=== PATIENT | female | born 1985 | race Caucasian/White ===

== ENCOUNTER 2016-09-26 19:53 | Emergency (ER) | payer OTHER ==
[2016-09-26 19:59] VITALS: RESP 16; TEMP 98.2
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
[2016-09-26] MEDS ORDERED: ACETAMINOPHEN TAB 500 MG TAB PO STA (21:26)
[2016-09-26 21:34] VITALS: BP 126/66; PULSE 82
== END 2016-09-26 21:34 | disposition home or self-care (01) ==
LOC: EC 19:53
DX: S06.0X0A Concussion without loss of consciousness, initial encounter (principal); V43.62XA Car passenger injured in collision with other type car in traffic accident, initial encounter; Y92.410 Unspecified street and highway as the place of occurrence of the external cause; Z87.891 Personal history of nicotine dependence
CPT/HCPCS: 70450; 72125; 99284

== ENCOUNTER → 2018-12-11 | Outpatient (CLI) | payer OTHER ==
--- NOTE | 2018-12-11 10:58 | MM ---
Reason for exam: screening (asymptomatic). Baseline mammogram. History: Patient is nulliparous. Family history of breast cancer in maternal grandmother at age 70. Taking hormonal contraceptives beginning at age 17. Physical Findings: Nurse did not find any significant physical abnormalities on exam. MG 3D Screening Mammo W/Cad Bilateral CC, MLO, and XCCL view(s) were taken. There are scattered fibroglandular densities. Small 5mm nodule on each side. 3D images suggest that these are circumscribed. Cysts are suspected. 6 month follow up recommended. These results were verbally communicated with the patient and result sheet given to the patient on 12/11/18. ASSESSMENT: Probably benign, BI-RAD 3 RECOMMENDATION: Follow-up diagnostic mammogram of both breasts in 6 months.
== END | disposition home or self-care (01) ==
LOC: RADMAMWWP 09:35
PROVIDERS: ATTEND Family Medicine
DX: Z12.31 Encounter for screening mammogram for malignant neoplasm of breast (principal); Z80.3 Family history of malignant neoplasm of breast
CPT/HCPCS: 77063; 77067

== ENCOUNTER → 2019-02-08 | Outpatient (CLI) | payer OTHER ==
--- NOTE | 2019-02-08 08:47 | MR ---
EXAMINATION TYPE: MR brain wo con DATE OF EXAM: 02/08/2019 7:51 AM COMPARISON: CT brain 09/26/2016 HISTORY: Headache Multiplanar and multispin-echo imaging of the brain was performed . The ventricles, basal cisterns and sulci overlying the cerebral convexities are within normal limits. There is no evidence for midline shift or mass effect. Acute intracranial hemorrhage or extra-axial collection is not evident. The brain parenchyma reveals some scattered hyperintensities and inversion recovery T2-weighted seque nces within the frontal and right parietal white matter, approximately 5-10 lesions are present No acute edema is identified. The paranasal sinuses show minimal mucosal thickening in the maxillary sinus on the left, and mastoid air cells are well-aerated. There is no restricted diffusion. There are normal vascular flow voids. Orbits show symmetric appearance. IMPRESSION: Nonspecific white matter demyelination could be related to migraine headaches, vasculitis, hypertensi on, multiple sclerosis, Lyme disease.
== END | disposition home or self-care (01) ==
LOC: RADMRIMAIN 07:16
PROVIDERS: ATTEND Nurse Practitioner Family
DX: G37.9 Demyelinating disease of central nervous system, unspecified (principal); G44.019 Episodic cluster headache, not intractable
CPT/HCPCS: 70551

== ENCOUNTER → 2019-05-08 | Outpatient (CLI) | payer OTHER ==
--- NOTE | 2019-05-08 20:02 | CONS ---
CONSULTATION REASON FOR CONSULTATION: Daytime sleepiness. This is a 33-year-old female patient who is coming in for excessive fatigue and daytime sleepiness. This has been a chronic problem. In fact, this patient was in our sleep center under the care of Dr. Jennifer quiroz in 2010. At that time the patient underwent investigation, including a PSG and a second-day MSLT that was completed on 07/23/2010. Based on the results, the patient was found to have very good sleep efficiency, on the order of 95.8%. The latency onset was normal at 9.4 minutes and she hit REM within 80 minutes. Overall sleep architecture showed a 4.6% stage I, 36.7% stage II, 31.8% stage III and 24% REM sleep. No significant nocturnal arousals. The apnea-hypopnea index was 3, and there was no evidence of any nocturnal oxygen desaturation. No evidence of any periodic limb movements. The patient was given a second-day MSLT and she was given a total of 5 naps. The mean sleep latency for 5 naps was 5.9 minutes and there was no REM-onset sleep. As such, the study was nondiagnostic for narcolepsy. 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 During the course of her treatment the patient was given Xyrem. The patient was given also stimulants, including Ritalin and Nuvigil. She did improve somewhat; however, her recovery was not complete and she continued to be symptomatic. She ultimately quit all the treatment and she has been off the treatment for many years. Recently the patient started developing cluster headaches. She was seen by Dr. Hawkins. Further investigation with an MRI of the brain showed chronic white matter changes, and the patient is being considered for lumbar puncture regarding the possibility of multiple sclerosis. Her current headaches have subsided. She has chronic anxiety. She is working from home. Her sleep hygiene measures are quite disturbed. She goes to bed around 4 a.m. and she gets out of bed around 1 p.m. the next day. 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 As such, she feels the best time for her to do all this work is at nighttime. Sometimes it takes her more than 30 minutes to fall asleep. On and off she wakes up in the middle of the night and ultimately she gets out of bed around 1 p.m. She does not snore. She has occasional nocturia. She has excessive tiredness and sleepiness after waking up in the morning. She sleeps on her side. No hallucinations. No sleep paralysis. No cataplexy. During the day she tries not to take any naps. Her weight is up by around 20 pounds over this past one year and current BMI is 37.5 compared to 35 back in 2011. No history of depression. She has chronic anxiety. No head trauma. No substance abuse. No history of meningitis. No history of encephalitis. No history of any other focal neurological deficits or seizures or difficulty with gait mobility, cognition or speech. PAST MEDICAL HISTORY: Cluster headaches and anxiety. PAST SURGICAL HISTORY: Past surgical history includes wisdom teeth extraction. DRUG ALLERGIES: NOT KNOWN. OUTPATIENT MEDICATION LIST: Outpatient medication list includes 10 mg at bedtime, omeprazole 20 mg p.o. daily and oral contraception pills. SOCIAL HISTORY: Patient is a nonsmoker. No history of alcohol. No history of IV drugs. FAMILY HISTORY: Negative for sleep apnea or any other form of sleep breathing disorder. REVIEW OF SYSTEMS: Fourteen-point review of systems was done. Positive findings were all mentioned above in the history of present illness. PHYSICAL EXAMINATION: VITAL SIGNS: BP is 109/69, pulse 86, respirations 16, temperature 98.7, saturation 99% on room air. Martin score is 11. BMI 37.3. Neck size 14-1/2. Weight is 242. Height is 5 feet 7 inches. GENERAL APPEARANCE: Calm, comfortable. HEAD: Atraumatic, normocephalic. NECK: Supple. No JVD. No goiter or neck masses. LUNGS: Clear to auscultation. HEART: Heart sounds are regular rate and rhythm. Normal S1, S2. No S3, S4. No murmurs. ABDOMEN: Soft, nontender. No organomegaly. EXTREMITIES: No edema. No cyanosis or clubbing. NEUROLOGIC: She is alert and oriented x3. No focal neurological deficit. IMPRESSION: 1. Chronic hypersomnia. The patient has a component of delayed sleep phase syndrome. Furthermore, she has poor sleep hygiene measures. On a separate note, the patient has been diagnosed having primary idiopathic hypersomnia based on a PSG and an MSLT that was done in 2010. Nevertheless, the sleep architecture was abnormal and the patient had increase in delta wave sleep. No evidence of any sleep breathing disorder. No evidence of restless legs syndrome. No evidence of any nocturnal oxygen desaturation. 2. Cluster headaches. 3. Chronic white matter disease. 4. Chronic anxiety. PLAN: Discussed the findings with the patient. It is possible that the patient may have an underlying neurologic disorder contributing to her chronic sleepiness. Nevertheless, this has not been proven and the patient is awaiting a lumbar puncture. Meanwhile, would like to treat her and improve her sleep hygiene measures. Would like to gradually advance her sleep to an earlier hour. I asked her to bring the time to wake up by one hour every week, and this will hopefully switch her time to go to bed to an earlier time. Our goal is to get her out of bed one hour earlier every week and ultimately her time to go to sleep should be at around 1 a.m. and she should get out of bed at around 10 a.m. Would like to improve her functionality during the day, and I gave her a prescription for Provigil 200 mg p.o. daily to be taken in the morning. Implement good sleep hygiene measures. Avoid computer work or work with light stimulation late at night time. Treatment of headaches per Neurology. Treatment of white matter changes per Neurology. No need for repeating a sleep study at this point in time. Will continue to follow. MMODL / IJN: [id number] /
== END ==
LOC: SLEEP 16:05
PROVIDERS: ATTEND Internal Medicine Critical Care Medicine
DX: G47.10 Hypersomnia, unspecified (principal); R51 Headache; R90.82 White matter disease, unspecified; F41.9 Anxiety disorder, unspecified; Z79.899 Other long term (current) drug therapy
CPT/HCPCS: 99211

== ENCOUNTER → 2021-01-19 | Outpatient (CLI) | payer OTHER ==
--- NOTE | 2021-01-22 14:09 | MM ---
Reason for exam: screening (asymptomatic). Last mammogram was performed 2 years and 1 month ago. History: Patient is nulliparous. Family history of breast cancer in maternal grandmother at age 70. Taking hormonal contraceptives beginning at age 17. Physical Findings: A clinical breast exam by your physician is recommended on an annual basis and results should be correlated with mammographic findings. MG 3D Screening Mammo W/Cad Bilateral CC and MLO view(s) were taken. Prior study comparison: December 11, 2018, bilateral MG 3d screening mammo w/cad. The breast tissue is heterogeneously dense. This may lower the sensitivity of mammography. No significant changes when compared with prior studies. ASSESSMENT: Benign, BI-RAD 2 RECOMMENDATION: Routine screening mammogram of both breasts in 1 year.
== END | disposition home or self-care (01) ==
LOC: RADMAMWWP 16:15
PROVIDERS: ATTEND Family Medicine
DX: Z12.31 Encounter for screening mammogram for malignant neoplasm of breast (principal); Z80.3 Family history of malignant neoplasm of breast
CPT/HCPCS: 77063; 77067

== ENCOUNTER 2021-06-20 00:06 | Emergency (ER) | payer OTHER ==
[2021-06-20 00:14] VITALS: BP 147/73; PULSE 87; RESP 18; TEMP 99.1
--- NOTE | 2021-06-20 01:05 | ED ---
URI HPI - General Chief Complaint: Upper Respiratory Infection Stated Complaint: Sore Throat, Headache Time Seen by Provider: 06/20/21 00:25 Source: patient, RN notes reviewed, old records reviewed Mode of arrival: ambulatory Limitations: no limitations - History of Present Illness Initial Comments: This is a 35-year-old female DF for evaluation. Patient states she needs coronavirus testing probably tomorrow. States for about 2 days she's been feeling cough congestion sinus infection with runny nose and sore throat. Sore throat was worse today prompting her to come to the ER for evaluation. Patient denying any fevers some occasional shortness of breath the patient also did go running today. She was immunized against coronavirus Complaint: cough, sore throat, nasal congestion -: days(s) Severity: mild Severity scale (1-10): 2 Quality: aching Consistency: intermittent Improves With: nothing Worsens With: nothing Context: sick contacts Associated Symptoms: cough Treatments Prior to Arrival: none - Related Data Home Medications Medication Instructions Recorded Confirmed Ranitidine HCl 150 mg PO BID 09/26/16 09/26/16 Allergies Allergy/AdvReac Type Severity Reaction Status Date / Time No Known Allergies Allergy Verified 06/20/21 00:15 Review of Systems ROS Statement: Those systems with pertinent positive or pertinent negative responses have been documented in the HPI. ROS Other: All systems not noted in ROS Statement are negative. Past Medical History Past Medical History: No Reported History History of Any Multi-Drug Resistant Organisms: None Reported Past Surgical History: Cholecystectomy Additional Past Surgical History / Comment(s): WISDOM TEETH Past Psychological History: No Psychological Hx Reported Smoking Status: Former smoker Past Alcohol Use History: None Reported Past Drug Use History: None Reported General Exam General appearance: alert, in no apparent distress Head exam: Present: atraumatic, normocephalic, normal inspection Eye exam: Present: normal appearance, PERRL, EOMI. Absent: scleral icterus, conjunctival injection, periorbital swelling ENT exam: Present: normal exam, mucous membranes moist Neck exam: Present: normal inspection. Absent: tenderness, meningismus, lymphadenopathy Respiratory exam: Present: normal lung sounds bilaterally. Absent: respiratory distress, wheezes, rales, rhonchi, stridor Cardiovascular Exam: Present: regular rate, normal rhythm, normal heart sounds. Absent: systolic murmur, diastolic murmur, rubs, gallop, clicks GI/Abdominal exam: Present: soft, normal bowel sounds. Absent: distended, tenderness, guarding, rebound, rigid Extremities exam: Present: normal inspection, full ROM, normal capillary refill. Absent: tenderness, pedal edema, joint swelling, calf tenderness Back exam: Present: normal inspection Neurological exam: Present: alert, oriented X3, CN II-XII intact Psychiatric exam: Present: normal affect, normal mood Skin exam: Present: warm, dry, intact, normal color. Absent: rash Course Vital Signs 06/20/21 00:11 Temperature 99.1 F Pulse Rate 87 Respiratory 18 Rate Blood Pressure 147/73 O2 Sat by Pulse 100 Oximetry - Reevaluation(s) Reevaluation #1: 06/20/21 01:22 Medical record is reviewed Reevaluation #2: 06/20/21 01:54 Patient informed of results and questions answered Medical Decision Making - Medical Decision Making 35 female to the emergency department for evaluation patient with some upper respiratory infection symptoms. Patient concern for coronavirus. Negative testing here in the ER patient can be discharged home - Lab Data Lab Results 06/20/21 Range/Units 01:09 Coronavirus (PCR) Not Detected (Not Detectd) Disposition Clinical Impression: Upper respiratory tract infection, Acute upper respiratory infection Disposition: HOME SELF-CARE Condition: Good Instructions (If sedation given, give patient instructions): Upper Respiratory Infection (ED) Is patient prescribed a controlled substance at d/c from ED?: No Referrals: Shelly Lowery III, MD [Primary Care Provider] - 1-2 days
[2021-06-20] MEDS: IBUPROFEN 600 MG TAB PO STA (01:16)
[2021-06-20] MEDS: ACETAMINOPHEN TAB 325 MG TAB PO STA (01:16)
== END 2021-06-20 02:18 | disposition home or self-care (01) ==
LOC: EC 00:06
DX: J06.9 Acute upper respiratory infection, unspecified (principal); Z87.891 Personal history of nicotine dependence
CPT/HCPCS: 87635; 99283

== ENCOUNTER → 2022-02-22 | Outpatient (CLI) | payer OTHER ==
--- NOTE | 2022-02-22 15:44 | MM ---
Reason for Exam: Screening (asymptomatic). Last mammogram was performed 1 year(s) and 1 month(s) ago. Patient History: Menarche at age 10. Patient has no children. Currently using Hormonal Contraceptives, starting at age 17. Maternal grandmother had breast cancer, age 70. Last menstrual period: 02/18/2022 Risk Values: Octavia 5 year model risk: 0.5%. NCI Lifetime model risk: 11.2%. Prior Study Comparison: 12/11/2018 Bilateral Screening Mammogram, [facility]. 01/19/2021 Bilateral Screening Mammogram, [facility]. Tissue Density: The breast tissue is heterogeneously dense. This may lower the sensitivity of mammography. Findings: Analyzed By CAD. There is no suspicious group of microcalcifications or new suspicious mass in either breast. Overall Assessment: Negative, BI-RAD 1 Management: Screening Mammogram of both breasts in 1 year. A clinical breast exam by your physician is recommended on an annual basis and results should be correlated with mammographic findings. Electronically signed and approved by: Tyler Seymour DO
== END | disposition home or self-care (01) ==
LOC: RADMAMWWP 14:37
PROVIDERS: ATTEND Family Medicine
DX: Z12.31 Encounter for screening mammogram for malignant neoplasm of breast (principal); Z80.3 Family history of malignant neoplasm of breast
CPT/HCPCS: 77063; 77067

== ENCOUNTER → 2023-03-07 | Outpatient (CLI) | payer BC ==
--- NOTE | 2023-03-08 22:32 | MM ---
Reason for Exam: Screening (asymptomatic). Last mammogram was performed 1 year(s) and 1 month(s) ago. Patient History: Menarche at age 10. Patient has no children. Premenopausal. Currently using Hormonal Contraceptives, starting at age 17. Maternal grandmother had breast cancer, age 70. Risk Values: Octavia 5 year model risk: 0.6%. NCI Lifetime model risk: 11.1%. Prior Study Comparison: 12/11/2018 Bilateral Screening Mammogram, [facility]. 01/19/2021 Bilateral Screening Mammogram, [facility]. 02/22/2022 Bilateral MG 3D screening mammo w/cad, [facility]. Tissue Density: The breast tissue is heterogeneously dense. This may lower the sensitivity of mammography. Findings: Analyzed By CAD. There is no suspicious group of microcalcifications or new suspicious mass in either breast. Overall Assessment: Negative, BI-RAD 1 Management: Screening Mammogram of both breasts in 1 year. . Patient should continue monthly self-breast exams. A clinical breast exam by your physician is recommended on an annual basis. This exam should not preclude additional follow-up of suspicious palpable abnormalities. Note on Octavia scores and lifetime risk: 1. A Octavia score greater than 3% is considered moderate risk. If this is the case, consider specialist referral to assess eligibility for a risk reducing agent. 2. If overall lifetime risk for the development of breast cancer is 20% or higher, the patient may qualify for future screening with alternating mammogram and breast MRI. Electronically signed and approved by: Jose Raul Watson M.D. Radiologist
== END | disposition home or self-care (01) ==
LOC: RADMAMWWP 16:48
PROVIDERS: ATTEND Family Medicine
DX: Z12.31 Encounter for screening mammogram for malignant neoplasm of breast (principal); Z80.3 Family history of malignant neoplasm of breast
CPT/HCPCS: 77063; 77067

== ENCOUNTER 2024-04-13 09:41 | Day surgery (SDC) | payer BC ==
[2024-04-11 09:05] VITALS: BMI 24.3
[2024-04-13] MEDS: IV FLUID CONTINUATION 1,000 ML IV ONE (10:15)
[2024-04-13 10:35] VITALS: RESP 16; TEMP 97.5
[2024-04-13] MEDS: LACTATED RINGERS 1,000 ML IV SCH (10:36)
[2024-04-13] MEDS ORDERED: PROPOFOL 10 MG/ML 20 ML VIAL IV ONE (11:15)
[2024-04-13] MEDS ORDERED: LIDOCAINE 1% INJ 10MG/ML (20 ML MDV) ONE (11:15)
--- NOTE | 2024-04-13 11:38 | P.PCN ---
Date of Procedure: 04/13/24 Procedure(s) Performed: BRIEF HISTORY: Patient is a 38-year-old pleasant white female scheduled for an elective colonoscopy as a part of screening for colon cancer and family history of colon cancer. Her mother was diagnosed with colon cancer at age 60. PROCEDURE PERFORMED: Colonoscopy snare polypectomy. PREOPERATIVE DIAGNOSIS: Screening for colon cancer and family history of colon cancer. IV sedation per Anesthesia. PROCEDURE: After informed consent was obtained, the patient, was brought [facility]. IV sedation was administered by Anesthesia under continuous monitoring. Digital rectal examination was normal. Initially the Olympus CF-160 flexible video colonoscope was then inserted in the rectum, gradually advanced into the cecum without any difficulty. Careful examination was performed as the scope was gradually being withdrawn. Ileocecal valve and the appendiceal orifice were visualized and appeared normal. Prep was excellent. Mucosa of the cecum, ascending colon, transverse colon, descending colon, sigmoid colon, and rectum appeared normal. The distal rectum there was an 8 mm polyp that was removed by cold snare polypectomy. Retroflexion was performed in the rectum and mild internal hemorrhoids were seen. The patient tolerated the procedure well. IMPRESSION: 8 mm distal rectal polyp status post cold snare polypectomy Small internal hemorrhoids RECOMMENDATIONS: Findings of this examination were discussed with the patient as well as her family. She was advised to follow-up with the biopsy results. It recommend a repeat colonoscopy in 5 year because of the family history of colon cancer..
[2024-04-13 12:05] VITALS: BP 117/86; PULSE 52
== END 2024-04-13 12:19 ==
LOC: ORWHC2ENDO 09:41
PROVIDERS: ATTEND Internal Medicine Gastroenterology
CPT/HCPCS: 45385; 81025; 88305

== ENCOUNTER → 2024-10-03 | Outpatient (CLI) | payer BC ==
--- NOTE | 2024-10-03 11:24 | MM ---
Reason for Exam: Screening (asymptomatic). Last mammogram was performed 1 year(s) and 7 month(s) ago. Patient History: Menarche at age 10. Patient has no children. Premenopausal. Patient used Hormonal Contraceptives for 7 years. Maternal grandmother had breast cancer, age 70. Last menstrual period: 09/28/2024 Risk Values: Octavia 5 year model risk: 0.7%. NCI Lifetime model risk: 11.0%. Prior Study Comparison: 01/19/2021 Bilateral Screening Mammogram, [facility]. 02/22/2022 Bilateral MG 3D screening mammo w/cad, [facility]. 03/07/2023 Bilateral MG 3D screening mammo w/cad, [facility]. Tissue Density: The breasts are heterogeneously dense, which may obscure small masses. Findings: Analyzed By CAD. There is no suspicious group of microcalcifications or new suspicious mass in either breast. Overall Assessment: Negative, BI-RAD 1 Management: Screening Mammogram of both breasts in 1 year. Patient should continue monthly self-breast exams. A clinical breast exam by your physician is recommended on an annual basis. This exam should not preclude additional follow-up of suspicious palpable abnormalities. Note on Octavia scores and lifetime risk: 1. A Octavia score greater than 3% is considered moderate risk. If this is the case, consider specialist referral to assess eligibility for a risk reducing agent. 2. If overall lifetime risk for the development of breast cancer is 20% or higher, the patient may qualify for future screening with alternating mammogram and breast MRI. [facility], , 10/03/2024 11:21 AM. Electronically signed and approved by: Jose Raul Watson M.D. Radiologist
== END | disposition home or self-care (01) ==
LOC: RADMAMWWP 08:34
PROVIDERS: ATTEND Obstetrics & Gynecology Obstetrics
DX: Z12.31 Encounter for screening mammogram for malignant neoplasm of breast (principal); R92.333 Mammographic heterogeneous density, bilateral breasts; Z92.0 Personal history of contraception; Z80.3 Family history of malignant neoplasm of breast
CPT/HCPCS: 77063; 77067

== ENCOUNTER → 2024-12-13 | Outpatient (CLI) | payer BC ==
[2024-12-13 15:12] LABS: Basophils # (A) 0.03 X 10*3/uL (0.00-0.10); Basophils % (A) 0.6 %; Eosinophils # (A) 0.09 X 10*3/uL (0.04-0.35); Eosinophils % (A) 1.7 %; HCT 41.8 % (37.2-46.3); HGB 13.8 g/dL (12.0-15.0); Lymphocytes # (A) 1.52 X 10*3/uL (0.90-5.00); Lymphocytes % (A) 29.5 %; MCH 31.6 pg (27.0-32.0); MCV 95.7 FL (80.0-97.0); Mean Platelet Volume 9.8 FL (9.5-12.2); Monocytes # (A) 0.43 X 10*3/uL (0.20-1.00); Monocytes % (A) 8.3 %; NRBC Per 100 WBC 0 X 10*3/uL (0.00-0.01); Neutrophils # (A) 3.07 X 10*3/uL (1.80-7.70); Neutrophils % (A) 59.7 %; Platelet Count 256 X 10*3/uL (140-440); RBC 4.37 X 10*6/uL (4.10-5.20); RDW 13.3 % (11.5-14.5); WBC 5.15 X 10*3/uL (4.50-10.00)
[2024-12-13 15:46] LABS: ALT 11 U/L (8-44); AST 15 U/L (13-35); Albumin 4.1 g/dL (3.8-4.9); Albumin/Globulin Ratio 1.46 Ratio (1.60-3.17); Alkaline Phosphatase 64 U/L (41-126); Calcium 8.9 mg/dL (8.7-10.3); Carbon Dioxide 24.5 mmol/L (21.6-31.8); Chloride 105 mmol/L (96-109); Chol/HDL Ratio 3.81 Ratio; Globulin 2.8 g/dL (1.6-3.3); Glucose 100 mg/dL (70-110); LDL Cholesterol,Calculated 128.1 mg/dL (0.0-131.0); Potassium 4.4 mmol/L (3.5-5.5); Sodium 139 mmol/L (135-145); Total Bilirubin 0.8 mg/dL (0.3-1.2); Total Protein 6.9 g/dL (6.2-8.2)
== END | disposition home or self-care (01) ==
LOC: LABWHC1 07:59
PROVIDERS: ATTEND Internal Medicine
DX: Z00.00 Encounter for general adult medical examination without abnormal findings (principal)
CPT/HCPCS: 36415; 80053; 80061; 83036; 85025